=== PATIENT | female | born 1945 | race Caucasian/White ===

== ENCOUNTER 2017-01-16 19:25 | Emergency (ER) | payer MEDICARE, OTHER ==
[~2017-01-16] VITALS: Ht 160 cm; Wt 94.0 kg
[~2017-01-16 19:25] MED LIST: ASA LO-DOSE81 MG OR; ASPIRIN 81 LOW81 MG PO; CALCIUM600 M1 OR; CRESTOR20 MG PO; LOPRESSOR25 MG PO; METOPROL TAR25 MG PO; OS-CAL D 250250 MG PO; PERCOCET1 TA4 PO; TORADOL PO; TRAMADOL HCL50 MG PO; XARELTO10 MG PO; XARELTO15 MG PO; XARELTO20 MG PO; ZOCOR80 MG OR; ZOSTAVAX IM
[2017-01-16] MEDS ORDERED: ASPIRIN81 MG PO (19:42)
[2017-01-16] MEDS ORDERED: FISH OIL1000 MG PO (19:43)
[2017-01-16] MEDS ORDERED: C 250 PO (19:43)
[2017-01-16] MEDS ORDERED: [UNRECOGNIZED DRUG - OTHER] (19:44)
[2017-01-16] MEDS ORDERED: SLOW (19:44)
[2017-01-16 20:10] LABS: URINE BILIRUBIN - DIPSTICK NEGATIVE (NEGATIVE); URINE BLOOD DIPSTICK NEGATIVE (NEGATIVE); URINE CLARITY CLEAR; URINE COLOR YELLOW; URINE GLUCOSE - DIPSTICK NEGATIVE (NEGATIVE); URINE KETONE TRACE mg/dL (NEGATIVE); URINE LEUK ESTERASE NEGATIVE (NEGATIVE); URINE NITRITE - DIPSTICK NEGATIVE (Negative); URINE PH 5.5 (4.5-8.0); URINE PROTEIN - DIPSTICK NEGATIVE (NEG-TRACE); URINE SPECIFIC GRAVITY >=1.030; URINE UROBILINOGEN - DIPSTICK 0.2 E.U./dL (0.2)
[2017-01-16 20:13] LABS: HEMATOCRIT 43.7 % (37.0-47.0); HEMOGLOBIN 14.1 g/dl (12.0-16.0); IMMATURE GRANULOCYTES 0.4 % (0.0-1.0); MEAN CELL VOLUME 89.5 fL CALC (80.0-100.0); MEAN CORPUSCULAR HGB 28.9 pG CALC (26.0-32.0); MEAN CORPUSCULAR HGB CONC 32.3 g/L CALC (32.0-36.0); NEUT# 7.29 thou/uL (2.00-7.15); RED BLOOD COUNT 4.88 mill/uL (4.20-5.60); RED CELL DISTRI WIDTH 12.5 % (11.5-15.5)
[2017-01-16 20:32] LABS: ALBUMIN 4.6 g/dL (3.2-5.0); ALKALINE PHOSPHATASE 76 u/l (38-126); AMYLASE 66 u/l (30-110); ANION GAP 17 (6-22 (CALC)); BILIRUBIN, TOTAL 0.7 mg/dL (0.0-1.4); BUN 18 mg/dL (8-23); BUN/CREATININE RATIO 27 (12-20 (CALC)); CALCIUM 9.6 mg/dL (8.4-10.2); CARBON DIOXIDE 27 mmol/l (22-30); CHLORIDE 101 mmol/l (95-108); CREATININE 0.7 mg/dL (0.5-1.0); GFR > 60 ML/MIN (>=60 (CALC)); GFR FOR AFR.AMER. > 60 ML/MIN (>=60 (CALC)); GLUCOSE 119 mg/dL (82-115); LIPASE 140 u/l (23-300); POTASSIUM 3.6 mmol/l (3.5-5.1); SGOT/AST 30 u/l (9-36); SGPT/ALT 43 u/l (11-66); SODIUM 142 mmol/l (137-146); TOTAL PROTEIN 8.1 g/dL (6.3-8.2)
[2017-01-16 20:40] LABS: MYOGLOBIN 28 ng/mL (0 - 62)
[2017-01-16] MEDS ORDERED: ZOFRAN4 MG/TAB PO (23:03)
[2017-01-16 23:20] VITALS: BP 126/57
[2017-01-17 00:02] LABS: C. DIFFICILE TOXIN A&B NEGATIVE (NEGATIVE)
== END 2017-01-16 23:20 | disposition home or self-care (01) ==
LOC: ED 19:25
PROVIDERS: Emergency Medicine
DX: K52.9 Noninfective gastroenteritis and colitis, unspecified (principal); R94.31 Abnormal electrocardiogram [ECG] [EKG]; R50.9 Fever, unspecified; R11.2 Nausea with vomiting, unspecified

== ENCOUNTER → 2017-08-01 | Day surgery (SDC) | payer MEDICARE, OTHER ==
[~2017-08-01] VITALS: Ht 160 cm; Wt 90.7 kg
[~2017-08-01] MED LIST changes: +ASPIRIN81 MG PO; +C 250 PO; +FISH OIL1000 MG PO; +LEVOTHYROXIN50 MCG PO; +METOPROLOL SUCC25 MG PO; +VITAMIN PO; +ZOFRAN4 MG/TAB PO
[2017-08-01 08:54] VITALS: BP 106/71
== END | disposition home or self-care (01) ==
LOC: ENDO 06:41
PROVIDERS: ATTEND Surgery
PROC: 0DJD8ZZ Inspection of Lower Intestinal Tract, Via Natural or Artificial Opening Endoscopic (ICD-10-PCS; principal; 2017-08-01)
DX: Z12.11 Encounter for screening for malignant neoplasm of colon (principal); K64.8 Other hemorrhoids; I10 Essential (primary) hypertension; E78.5 Hyperlipidemia, unspecified; E03.9 Hypothyroidism, unspecified; Z86.711 Personal history of pulmonary embolism; Z86.010 Personal history of colon polyps

== ENCOUNTER 2018-06-26 11:26 | Inpatient (IN) | payer MEDICARE, OTHER ==
[~2018-06-26] VITALS: Ht 160 cm; Wt 95.8 kg
[2018-06-26] MEDS ORDERED: BIOTIN5000 MC2 PO (14:41)
[2018-07-01] VITALS (8 sets, daily range): BP systolic 100–127; BP diastolic 37–80
--- NOTE | 2018-07-01 14:05 | NUR ---
PT ARRIVED FROM OR VIA BED, FAMILY CAME SHORTLY AFTERWARD. IV SITE IS FREE FROM REDNESS OR EDEMA. HR IS REG, PULSES ARE STRONG X4, ABD IS SOFT WITH ACTIVE BS, DRESSING ON R KNEE IS CDI. CONTINUE TO OSBERVE AND MONITOR
--- NOTE | 2018-07-01 18:02 | NUR ---
PT HAS BEEN VISITING WITH FAMILY. NO DISTRESS MOTED.IV SITE IS FREE FROM REDNESS OR EDEMA.
--- NOTE | 2018-07-01 19:00 | NUR ---
RECEIVED CHANGE OF SHIFT REOPORT FROM PETEY ARZOLA. PT ALERT AND ORIENTED AND LYING IN BED. DENIES PAIN OR DISCOMFORT AT THIS TIME. ADVISED PT TO CALL WHEN STARTING TO HURT. PT VERBALIZED UNDERSTANDING. NO APPARENT ACUTE DISTRESS NOTED. WILL CONTINUE TO MONITOR.
[2018-07-02] VITALS (7 sets, daily range): BP systolic 108–138; BP diastolic 60–78
--- NOTE | 2018-07-02 | NUR ---
PT AWAKE AND LYING IN BED. REPORTS PAIN TO RT HIP. REPOSITIONED PT TO L SIDE.
--- NOTE | 2018-07-02 05:00 | NUR ---
PT SLEPT INTERMITENTLY DURING THE NIGHT. NO VOICED COMPLAINTS. NO APPARENT ACUTE CHANGES NOTED IN PT'S CONDITION.
[2018-07-02 05:09] LABS: IMMATURE GRANULOCYTES 0.2 % (0.0-5.0); MEAN CELL VOLUME 91.6 fL CALC (80.0-100.0); MEAN CORPUSCULAR HGB 29.5 pG CALC (26.0-32.0); MEAN CORPUSCULAR HGB CONC 32.2 g/L CALC (32.0-36.0); NEUT# 3.75 thou/uL (2.00-7.15); RED BLOOD COUNT 3.59 mill/uL (4.20-5.60); RED CELL DISTRI WIDTH 13.2 % (11.5-15.5)
[2018-07-02 05:12] LABS: HEMATOCRIT 32.9 % (37.0-47.0); HEMOGLOBIN 10.6 g/dl (12.0-16.0)
[2018-07-02 05:23] LABS: ALBUMIN 3.4 g/dL (3.2-5.0); ALKALINE PHOSPHATASE 56 u/l (38-126); ANION GAP 15 (6-22 (CALC)); BILIRUBIN, TOTAL 0.5 mg/dL (0.0-1.4); BUN 10 mg/dL (8-23); BUN/CREATININE RATIO 19 (12-20 (CALC)); CARBON DIOXIDE 26 mmol/l (22-30); CHLORIDE 103 mmol/l (95-108); CREATININE 0.5 mg/dL (0.5-1.0); GFR > 60 ML/MIN (>=60 (CALC)); GFR FOR AFR.AMER. > 60 ML/MIN (>=60 (CALC)); MAGNESIUM 1.6 mg/dL (1.6-2.3); POTASSIUM 4.2 mmol/l (3.5-5.1); SGOT/AST 24 u/l (9-36); SGPT/ALT 33 u/l (11-66); SODIUM 140 mmol/l (137-146); TOTAL PROTEIN 5.8 g/dL (6.3-8.2)
--- NOTE | 2018-07-02 08:40 | NUR ---
ASSESSMENT IS COMPLETED: IV SITE IS FREE FROM REDNESS OR EDEMA. HR IS REG, PULSES ARE STRONG X4, ABD IS SOFT WITH ACTIVE BS. BREATH SOUNDS ARE CLEAR, BILATERALLY. NO C/O SOB, DRESSING ON R KNEE IS CDI. CONTINUE TO OSBERVE AND MONITOR.
--- NOTE | 2018-07-02 12:00 | NUR ---
AM: PATIENT SEEN FOR GAIT TRAINING AND EX. STATES SHE WAS NAUSEAUS ALL NIGHT AND DIDN'T EAT BREAKFAST. STATES SHE CANNOT MOVE THE LEFT LEG. ISOMETRIC EX FOR QUADS AND GLUTS, ANKLE PUMPS AND HIP ROTATIONS DONE. AA KNEE FLEX AND EXT DONE IN SITTING. MOD ASSIST NEEDED FOR TRANSFERS TO ASSIST WITH MOVING THE LEFT LE. SHE IS TRYING FOR NWB DURING GAIT WITH THE WALKER. SHE IS ABLE TO WALK APPROX 6 STEPS AND THEN BECAME NAUSEOUS AND SOB. THIS PASSED AFTER SHE SAT DOWN. SHE WAS LEFT COMFORTABLE IN THE CHAIR WITH THE TRAY TABLE NEXT TO HER, AND THE CALL LIGHT ON HER LAP. SHE STATED SHE FELT BETTER AFTER SITTING.
--- NOTE | 2018-07-02 12:40 | NUR ---
PT IS RELAXING IN THE CHAIR. NO DISTRESS NOTED. IV SITE IS FREE FROM REDNESS OR EDEMA.
--- NOTE | 2018-07-02 14:51 | NUR ---
PM: PATIENT SEEN FOR GAIT TRAINING AND THERAPEUTIC EXERCISE. SHE HAS BEEN UP IN THE CHAIR FOR 3 HOURS WITHOUT COMPLAINT. PATIENT IS VERY GROGGY-SLURRING HER WORDS AND FALLING ASLEEP IN DURING THE THERAPY SESSION. PATIENT WAS ABLE TO TRANSFER SIT TO AND FROM STAND WITH MOD ASSIST. TRANSFERS STAND TO SIT ARE UNSAFE SHE LETS HERSELF FALL BACK INTO THE CHAIR OR ONTO THE BED WITH NO REGARD TO SAFETY DESPITE CONTINUAL VERBAL AND PHYSICAL CUING. SHE WAS ABLE TO AMBULATE 10 FEET WITH THE ROLLING WALKER AND MODERATE ASSIST OF ONE. THERAPEUTIC EX DONE FOR ROM AND STRENGTHENING OF THE LEFT LEG. PATIENT DIFFICULT TO MOTIVATE BECAUSE OF FATIGUE. SHE WAS LEFT COMFORTABLE IN THE BED WITH THE CALL LIGHT AND TRAY TABLE BY HER SIDE.
--- NOTE | 2018-07-02 16:00 | NUR ---
PT IS RELAXING IN THE BED , WAS IN THE CHAIR. IV SITE IS FREE FROM REDNESS OR EDEMA.
--- NOTE | 2018-07-02 19:00 | NUR ---
RECEIVED CHANGE OF SHIFT REPORT FROM PETEY AROZLA. PT ALERRT AND ORIENTED X 3 AND LYING IN BED. DENIES PAIN. PT STATED " I ONLY HURT WHEN I GET UP TO USE THE BSC. jUST LYING HERE IT DOES NOT HURT." RLE WARM TO THE TOUCH. PT ABLE TO WIGGLE TOES. NO APPARENT ACUTE DISTRESS NOTED. WILL CONTINUE TO MONITOR.
--- NOTE | 2018-07-03 | NUR ---
PT AWAKE AND LYING IN BED. NO VOICED COMPLAINTS. NO APPARENT ACUTE DISTRESS NOTED. WILL CONTINUE TO MONITOR.
--- NOTE | 2018-07-03 05:00 | NUR ---
PT SLEPT WELL DURING THE NIGHT. DENIES PAIN EXCEPT WHEN SHE IS MOVED. NO APPARENT ACUTE DISTRESS NOTED. SCANT WOUND DRAINAGE NOTED TO RLE. PT STATES SHE BUMP AND CUT HER LEG OF A DOG CAGE. BAND AID OVER WOUND.
[2018-07-03 05:05] VITALS: BP 114/68
[2018-07-03 05:08] LABS: HEMATOCRIT 29.2 % (37.0-47.0); HEMOGLOBIN 9.5 g/dl (12.0-16.0); IMMATURE GRANULOCYTES 0.5 % (0.0-5.0); MEAN CORPUSCULAR HGB 29.6 pG CALC (26.0-32.0); MEAN CORPUSCULAR HGB CONC 32.5 g/L CALC (32.0-36.0); NEUT# 3.99 thou/uL (2.00-7.15); RED BLOOD COUNT 3.21 mill/uL (4.20-5.60); RED CELL DISTRI WIDTH 13.1 % (11.5-15.5)
--- NOTE | 2018-07-03 08:00 | NUR ---
PT UP TO CHAIR WITH ASSISTANCE BY UTILITIES OPERATOR. PT ASKED TO USE BEDSIDE COMMODE. PT ASSISTED WITH WALKER TO COMMODE THEN TO CHAIR TO SIT UP FOR BREAKFAST. NO COMPLAINTS AT THIS TIME. CALL LYNDSEY IN REACH.
[2018-07-03 08:30] VITALS: BP 118/50
--- NOTE | 2018-07-03 08:30 | NUR ---
PT IS SITTING UP IN THE CHAIR. NO DISTRESS NOTED. IV SITE IS FREE FROM REDNESS OR EDEMA. PT C/O LEG BURNING AND PAIN. R KNEE DRESSING IS CDI. WHERE SHE SCRAPED THE MORNING OF SURGERY. IS DRAINING SERO DRAINAGE. HR IS REG,PULSES ARE STRONG X4, ABD IS SOFT WITH ACTIVE BS. BREATH SOUNDS ARE CLEAR, CONTINUE TO OSBERVE AND MONITOR.
--- NOTE | 2018-07-03 10:41 | NUR ---
REMOVED PT'S DRESSING ON R KNEE AND R LOWER LEG, LOWER LEG HAS SOME SERO AND BLOODY DRAINAGE FROM SCRAPING ON A DOG CRATE THE DAY OF SURGERY. NO DRAINAGE ON SURGERY SITE. USING CLEAN TECHNIQUE. PT TOLERATED WELL.
[2018-07-03 11:00] VITALS: BP 125/69
--- NOTE | 2018-07-03 12:20 | NUR ---
PT IS RELAXING IN BED WITH FAMILY IN THE ROOM. IV SITE IS FREE FROM REDNESS OR EDEMA. CONTINUE TO OSBERVE AND MONITOR.
[2018-07-03 16:00] VITALS: BP 121/62
--- NOTE | 2018-07-03 16:04 | NUR ---
Pt seen this pm for treatment. She was in bed, c/o R knee pain. Ther ex performed in supine and sitting. Quad set/contraction was poor and required assist with SAQ and LAQ. Pt moved supine to and from sit with min assist of RRLE. She ambulated 2 x 30' in room with RW with CGA and verbal cues for gait pattern. Pt returned to bed and was positioned corrected with call desouza in reach and 2 visitors present. Nursing notified so they con finish a procedure.
--- NOTE | 2018-07-03 16:20 | NUR ---
PT HAS BEEN RESTING IN BED , DID GET UP WITH PHYSICAL THERAPY. IV SITE IS FREE FROM REDNESS OR EDMEA. CONTINUE TO OBSERVE AND MONITOR.
[2018-07-03 19:00] VITALS: BP 128/66
--- NOTE | 2018-07-03 20:15 | NUR ---
PT ASSISTED TO BSC AND BACK TO BED. DENIES ANY OTHER NEEDS AT THIS TIME. CALL LIGHT AT BEDSIDE AND PT ENCOURAGED TO CALL NEEDED. SCD REPLACED ON LEFT LOWER LEG AND RIGHT LEG POSITIONED FOR PROPER CARE. DRESSING IS CDI AT THIS TIME.
--- NOTE | 2018-07-03 22:21 | NUR ---
PT MEDICATED ORDERS PROVIDE AND WITH TYELENOL FOR TEMP OF 101.6. PT DENIES PAIN MEDICATED/DENIES PAIN, REPORTING THAT SHE ONLY HAS PAIN WHEN MOVING, BUT THAT SHE WAS SLEEPING WELL WHEN I ENTERED THE ROOM AND WOKE HER UP. SURGICAL INCISION IS CDI, MINIMAL REDNESS TO AREA. DRESSING TO LOWER RIGHT LEG IS CDI.PT ASSESSED AT THIS TIME, LUNG SOUNDS ARE CLEAR, ABD SOFT/NON-TENDER WITH ACTIVE BOWEL SOUNDS, DISCUSSED WITH PT ABOUT PILLOW PLACEMENT AND KEEPING KNEE STRAIGHT WHILE IN BED. PT ASSISTED IN POSITIONING SO THAT PILLOW IS NOT UNDER THE KNEE. IS WAS UP IN CUBBY NEXT TO BED OUT OF THE PT REACH, MOVED TO [facility] AND PT REORIENTED IN ITS USE/PT VOICED UNDERSTANDING. PT DENIES ANY OTHER NEEDS AT THIS TIME.
--- NOTE | 2018-07-04 01:45 | NUR ---
AIDE REPORTED THAT PT AMBULATED W/ASSISTANCE TO BSC AND BACK TO BED. SHE REPORTED THAT BEDDING HAD TO BE CHANGED DUE TO A 4X4" AREA OF DRAINAGE FROM RIGHT LOWER LEG WOUND. DRESSING HAD COME LOOSE AND WAS NOT COVERING WOUND. I REDRESSED THE AREA WITH KURLEX AND WILL CONTINUE TO MONITOR. PT TEMP REASSESSED TO BE 98.5 A THIS TIME.
[2018-07-04 04:00] VITALS: BP 119/67
--- NOTE | 2018-07-04 04:25 | NUR ---
PT IS SLEEPING, BUT AWOKE TO MY ENTERING ROOM. REQUESTED SCD REMOVED DUE TO BEEPING, WHICH HAD BEEN WORKED ON EARLIER IN THE EVENING. SCD REMOVED PER REQUEST. DENIES ANY OTHER NEEDS AT THIS TIME. CALL LIGHT AT BEDSIDE.
[2018-07-04 05:26] LABS: HEMATOCRIT 28.6 % (37.0-47.0); HEMOGLOBIN 9.3 g/dl (12.0-16.0); IMMATURE GRANULOCYTES 0.5 % (0.0-5.0); MEAN CELL VOLUME 91.7 fL CALC (80.0-100.0); MEAN CORPUSCULAR HGB 29.8 pG CALC (26.0-32.0); MEAN CORPUSCULAR HGB CONC 32.5 g/L CALC (32.0-36.0); NEUT# 4.2 thou/uL (2.00-7.15); RED BLOOD COUNT 3.12 mill/uL (4.20-5.60); RED CELL DISTRI WIDTH 13.1 % (11.5-15.5)
[2018-07-04 05:52] LABS: ALKALINE PHOSPHATASE 69 u/l (38-126); ANION GAP 13 (6-22 (CALC)); BILIRUBIN, TOTAL 0.7 mg/dL (0.0-1.4); BUN 9 mg/dL (8-23); BUN/CREATININE RATIO 16 (12-20 (CALC)); CARBON DIOXIDE 31 mmol/l (22-30); CHLORIDE 102 mmol/l (95-108); CREATININE 0.6 mg/dL (0.5-1.0); GFR > 60 ML/MIN (>=60 (CALC)); GFR FOR AFR.AMER. > 60 ML/MIN (>=60 (CALC)); POTASSIUM 3.8 mmol/l (3.5-5.1); SGOT/AST 17 u/l (9-36); SGPT/ALT 23 u/l (11-66); SODIUM 142 mmol/l (137-146); TOTAL PROTEIN 5.4 g/dL (6.3-8.2)
[2018-07-04 05:54] LABS: MAGNESIUM 2.2 mg/dL (1.6-2.3)
--- NOTE | 2018-07-04 06:11 | NUR ---
PT MEDICATED ORDERS PROVIDE AND DRESSING TO LOWER RIGHT LEG REINFORCED FOR SMALL AMOUNT OF YELLOW DRAINAGE. WILL CONTINUE TO MONITOR.
[2018-07-04 09:36] VITALS: BP 126/50
[2018-07-04 11:55] VITALS: BP 102/58
--- NOTE | 2018-07-04 12:39 | NUR ---
AM. PT WAS SEEN FOR GT. MIN A ON SLIDING LEG OFF THE BED. PT REPORTS HAVING A GREAT DIFFICULTY LIFTING HER OPERATED LEG. EDUCATED PT ON THE IMPORTANCE OF REGULARLY DOING HER EXERCISES. PT STOOD UP FROM SITTING ON EOB WITH VC AND SBA. SHE STARTED AMB W/ RW AND SBA IN THE HALLWAY ~60 FT. X 2 STATING THAT IT WAS THE FARTHEST SHE'S WALKED AFTER SURGERY. PT WAS INSTRUCTED ON PROPER GAIT SHE PRESENTED WITH ANTALGIC GAIT. SHE THEN RETURNED TO HER ROOM AND SAT DOWN ON EOB. MIN A ON LIFTING LEG BACK TO BED WHERE PT REPOSITIONED HERSELF. LEFT PT W/ CALL SOLORIO BESIDE HER. NO ADVERSE EVENTS NOTED OR REPORTED.
--- NOTE | 2018-07-04 15:00 | NUR ---
The patient is seen BID for treatment today. The PM treatment included ROM stretching and review of quad set. PROM 5-80 limited by postop pain. She is battling some cellulitis of the RLE but otherwise is prgoressing well, ambulating nearly 2000 feet but on a level surface only and with min assist of 1. She needs assistance for fall prevention and progression of her gait to a steep through pattern on multiple surfaces
[2018-07-04 15:21] VITALS: BP 107/61
[2018-07-04 19:20] VITALS: BP 108/54
--- NOTE | 2018-07-04 19:25 | NUR ---
REPORT RECEIVED FROM DAY NURSE. PT IS SLEEPING AT THIS TIME. NO S/S OF DISTRESS AT THIS TIME. CALL LIGHT IS AT SIDE.
--- NOTE | 2018-07-04 20:12 | NUR ---
NEW IV SITE ACCESSED, PT TOLERATED WELL. DENIES ANY OTHER NEEDS AT THIS TIME. TV AND LIGHTS ON LOW, CALL LIGHT AT SIDE.
--- NOTE | 2018-07-04 22:15 | NUR ---
PT MEDICATED ORDERS PROVIDE, IV ANTIBIOTIC THERAPY BEING ADMINSTERED AT THIS TIME. PT ASSESSED, LUNG SOUNDS ARE CLEAR, ABD SOFT NON-TENDER W/ACTIVE BOWEL SOUNDS, DENIES BM TODAY, LOCX3, INCISION TO RIGHT KNEE HAS DERMABOND MINIMAL REDNESS, WARMTH AND EDEMA TO RIGHT LEG. STRONG PEDAL PULSES BILATERALLY. ICE PACK PLACED TO INCISION AREA AND PT REMINDED OF USE OF IS/REPORTS USING. PT DENIES ANY OTHER NEEDS AT THIS TIME. CALL LIGHT W/IN REACH.
[2018-07-05 00:06] VITALS: BP 120/64
[2018-07-05 04:09] LABS: URINE BILIRUBIN - DIPSTICK NEGATIVE (NEGATIVE); URINE BLOOD DIPSTICK NEGATIVE (NEGATIVE); URINE CLARITY SL CLOUDY; URINE COLOR YELLOW; URINE GLUCOSE - DIPSTICK NEGATIVE (NEGATIVE); URINE KETONE NEGATIVE (NEGATIVE); URINE LEUK ESTERASE NEGATIVE (NEGATIVE); URINE NITRITE - DIPSTICK NEGATIVE (Negative); URINE PH 6.5 (4.5-8.0); URINE PROTEIN - DIPSTICK NEGATIVE (NEG-TRACE); URINE UROBILINOGEN - DIPSTICK 0.2 E.U./dL (0.2)
[2018-07-05 04:14] VITALS: BP 123/71
--- NOTE | 2018-07-05 05:56 | NUR ---
PT MEDICATED W/ANTIBIOTIC IV THERAPY AND MEDICATIONS ORDERED. PT IS A LITTLE TEARY STATING SHE "THOUGHT I WOULD BE GETTING OUT OF HERE BY NOW." I REASSURED PT AND DISCUSSED POC AND PROVIDED COMFORT REASSURANCE TO HER. PT IS GOING TO ATTEMPT TO GO BACK TO SLEEP. LIGHTS AND TV ARE OFF. SHE DENIES ANY PAIN OR NEED FOR PAIN MEDICATIONS. WILL CONITINUE TO MONITOR.
--- NOTE | 2018-07-05 07:00 | NUR ---
SHIFT CHANGE REPORT FROM TRISH LEONARDO SLEEPING AT THIS TIME, BREATHING EVEN AND NON-LABORED, NO SIGN DISCOMFORT, CALL SOLORIO IN REACH.
--- NOTE | 2018-07-05 08:00 | NUR ---
AWAKE ALERT AND ORIENTED HAVING MEAL, NO C/O DISCOMFORT, ASSISTED TO BR AND BACK TO RECLINER, SITTING UP AT THIS TIME.
[2018-07-05 08:21] VITALS: BP 129/76
[2018-07-05 11:11] VITALS: BP 108/60
--- NOTE | 2018-07-05 11:14 | NUR ---
The patient is seen for therapeutic exercises this morning including heel slides and SAQ. She has these for HEP and demonstrates them without difficulty. AROM 0-65- limited by postop pain and edema today. PROM to 80 degrees. She is able to ambulate WBAT on a levl surface only for 220 feet. She required mod assist to do so due to postop weakness. She is improving nicely and will be a great rehab candidate
--- NOTE | 2018-07-05 12:57 | NUR ---
DR JEAN ONTIVEROS, DISCUSSED D/C INSTRUCTIONS, PT STATED SHE IS ALREADY SET-UP FOR REHAB IN [facility], ALL NEEDS ADDRESS, WILL CONTINUE TO MONITOR.
[2018-07-05 15:53] VITALS: BP 125/66
--- NOTE | 2018-07-05 17:01 | NUR ---
The patient is seen in the PM. She demonstrated independence with her HEP. ROM is 0-80 and she has a good quad set. She ambulated 220 feet with mod assist of 1 and has been transferring bed to chair independently. She is ready for DC to next level of care.
--- NOTE | 2018-07-05 19:20 | NUR ---
BEDSIDE REPORT RECEIVED FROM DAY NURSE. WHILE WE WERE IN THE ROOM PT REQUESTED TO AMBULATE TO RESTROOM. PT WAS ASSISTED TO RESTROOM AND BACK TO BED/TOLERATED WELL. ASSISTED REPOSITIONING FOR COMFORT AND ENCOURAGED TO CALL NEEDS ARISE. DENIES ANY NEEDS AT THIS TIME.
--- NOTE | 2018-07-05 19:40 | NUR ---
REPORT RECEIVED FROM DAY NURSE. PT IS IN BED W/LIGHTS LOW AND TV OFF. HIS HEAD WAS COVERED WITH SHEET WE ENTERED ROOM, BUT HE AWOKE AND REMOVED IT TO OUR ENTRANCE. PT REPORTS FEELING NAUSIOUS AND "JUMPY LEGS" AND REQUESTED MEDICATIONS AT THIS TIME/MEDICATED FOR NAUSEA, ANXIETY AND RESTLESS LEG SYNDROME. PT ASSESSED AND POC DISCUSSED. WILL CONTINUE TO MONITOR AND PT ENCOURAGED TO CALL IF ANY NEEDS ARISE. HE DENIES ANY NEEDS AT THIS TIME. CALL LIGHT IS IN HAND.
[2018-07-05 20:00] VITALS: BP 127/71
--- NOTE | 2018-07-05 22:07 | NUR ---
PT ASSISTED TO RESTROOM AND BACK TO BED, REPOSITIONED/ICE PACK PLACED TO KNEE, ASSISTED PT IN REPLACING PILLOWS TO BED. TEMP ASSESSED 100.5/MEDICATED WITH TYLENOL AND OTHER MEDICATIONS ORDERS PROVIDE. LUNG SOUNDS ARE CLEAR, MILD EDEMA TO RIGHT LEG, INCISION TO KNEE APPEARS MILDLY REDDENED AT CENTER/OTHERWISE HEALTHY AND INTACT. DRESSING TO SKIN TEAR TO RIGHT LOWER LEG IS CDI, PT TOLERATED AMBULATING WELL, DENIES NEED FOR PAIN MEDICATION AT THIS TIME. PT ENCOURAGED TO CALL IF ANY OTHER NEEDS ARISE. CALL LIGHT AT BEDSIDE.
--- NOTE | 2018-07-05 22:55 | NUR ---
PT CALLED TO REPORT NEEDING ASSISTANCE IN REPOSITIONING LEG AND PAIN MEDICATION. PT MEDICATED AT THIS TIME AND REPOSITIONED FOR COMFORT AND CORRECT POSITIONING OF KNEE.
--- NOTE | 2018-07-06 03:05 | NUR ---
PT APPEARS TO BE SLEEPING AT THIS TIME, NO S/S OF DISTRESS NOTED. CALL LIGHT AT BEDSIDE.
[2018-07-06 05:13] VITALS: BP 111/72
[2018-07-06 05:47] LABS: HEMATOCRIT 25.7 % (37.0-47.0); HEMOGLOBIN 8.1 g/dl (12.0-16.0); IMMATURE GRANULOCYTES 0.7 % (0.0-5.0); MEAN CELL VOLUME 93.5 fL CALC (80.0-100.0); MEAN CORPUSCULAR HGB 29.5 pG CALC (26.0-32.0); MEAN CORPUSCULAR HGB CONC 31.5 g/L CALC (32.0-36.0); NEUT# 2.56 thou/uL (2.00-7.15); RED BLOOD COUNT 2.75 mill/uL (4.20-5.60); RED CELL DISTRI WIDTH 13.4 % (11.5-15.5)
--- NOTE | 2018-07-06 07:06 | NUR ---
BEDSIDE REPORT RECEIVED BY ROWENA. PT IS RESTING IN BED WITH NO S/S OF DISTRESS NOTED. PT DENIES NEEDS AT THIS TIME. CALL LIGHT IN REACH.
[2018-07-06 08:25] VITALS: BP 112/62
--- NOTE | 2018-07-06 08:35 | NUR ---
PT IS SITTING IN RECLINER WITH LEGS ELEVATED. ASSESSMENT DONE. RESPS EVEN AND UNLABORED. PT IS A&O X3. INCENTIVE SPIROMETRY ENCOURAGE AND PT VERBALIZED UNDERSTANDING. PT DENIES PAIN AT THIS TIME. #22 LFA THAT APPEARS HEALTHY. RLE LEG DRESSING IS CDI. RIGHT KNEE LEG [employer] AND WARM TO THE TOUCH. SAFETY PRECAUTIONS REINFORCED AND CALL LIGHT IN REACH.
[2018-07-06] MEDS ORDERED: XARELTO10 MG PO (09:42)
[2018-07-06] MEDS ORDERED: PANTOPRAZOLE SO40 M1 PO (09:42)
[2018-07-06] MEDS ORDERED: GLYCOLAX3350 N1 PO (09:42)
[2018-07-06] MEDS ORDERED: LORTAB 1010 MG PO (09:42)
[2018-07-06] MEDS ORDERED: FERR SULFATE325 MG PO (09:43)
[2018-07-06] MEDS ORDERED: AUGMENTIN875TAB PO (09:45)
[2018-07-06] MEDS ORDERED: DOXYCYCL HYC100 MG PO (09:45)
--- NOTE | 2018-07-06 11:00 | NUR ---
PT RESTING IN BED . DRESSING CHANGE TO RLE . PT TOLERATED DRESSING CHANGE WELL. PT DENIES ANY OTHER NEEDS AT THIS TIME. CALL LIGHT IN REACH.
--- NOTE | 2018-07-06 14:56 | NUR ---
Discharge instructions given. Patient verbalizes understanding of same. Discharged in stable condition via Wheelchair to *Other with staff. All belongings sent with pt.
--- NOTE | 2018-07-06 15:36 | NUR ---
REPORT GIVEN TO MINISTERIO IN REHAB.
== END 2018-07-06 14:56 | DRG 470 ==
LOC: MS2 07-01 05:48
PROVIDERS: Nurse Practitioner Family; ADMIT Orthopaedic Surgery; ATTEND Internal Medicine Nephrology
PROC: 0SRC0J9 Replacement of Right Knee Joint with Synthetic Substitute, Cemented, Open Approach (ICD-10-PCS; principal; 2018-07-01)
DX: M17.11 Unilateral primary osteoarthritis, right knee (principal); L03.115 Cellulitis of right lower limb; M23.8X1 Other internal derangements of right knee; I10 Essential (primary) hypertension; E03.9 Hypothyroidism, unspecified; E78.5 Hyperlipidemia, unspecified; I47.9 Paroxysmal tachycardia, unspecified; D64.9 Anemia, unspecified; S80.811A Abrasion, right lower leg, initial encounter; G25.81 Restless legs syndrome; E66.9 Obesity, unspecified; W22.8XXA Striking against or struck by other objects, initial encounter; Z68.37 Body mass index [BMI] 37.0-37.9, adult; Z96.652 Presence of left artificial knee joint; Z87.891 Personal history of nicotine dependence; Z79.82 Long term (current) use of aspirin; Z86.711 Personal history of pulmonary embolism
CPT/HCPCS: C1713; J1650

== ENCOUNTER 2018-09-17 14:36 | Emergency (ER) | payer MEDICARE, OTHER ==
[~2018-09-17] VITALS: Ht 160 cm; Wt 89.5 kg
[~2018-09-17 14:36] MED LIST changes: +AUGMENTIN875TAB PO; +BIOTIN5000 MC2 PO; +DOXYCYCL HYC100 MG PO; +FERR SULFATE325 MG PO; +GLYCOLAX3350 N1 PO; +LORTAB 1010 MG PO; +PANTOPRAZOLE SO40 M1 PO
[2018-09-17 16:15] VITALS: BP 155/74
== END 2018-09-17 16:15 | disposition home or self-care (01) ==
LOC: ED 14:36
DX: S80.02XA Contusion of left knee, initial encounter (principal); S80.01XA Contusion of right knee, initial encounter; M25.551 Pain in right hip; E78.00 Pure hypercholesterolemia, unspecified; W18.39XA Other fall on same level, initial encounter; Z86.711 Personal history of pulmonary embolism; Z96.653 Presence of artificial knee joint, bilateral

== ENCOUNTER → 2018-11-26 | Outpatient (REF) | payer MEDICARE, OTHER ==
[2018-11-26 11:30] LABS: HEMATOCRIT 45.5 % (37.0-47.0); HEMOGLOBIN 14.9 g/dl (12.0-16.0); IMMATURE GRANULOCYTES 0.3 % (0.0-5.0); MEAN CELL VOLUME 89.7 fL CALC (80.0-100.0); MEAN CORPUSCULAR HGB 29.4 pG CALC (26.0-32.0); MEAN CORPUSCULAR HGB CONC 32.7 g/L CALC (32.0-36.0); NEUT# 5.25 thou/uL (2.00-7.15); RED BLOOD COUNT 5.07 mill/uL (4.20-5.60); RED CELL DISTRI WIDTH 13.9 % (11.5-15.5)
[2018-11-26 12:05] LABS: ALBUMIN 4.5 g/dL (3.2-5.0); ALKALINE PHOSPHATASE 70 u/l (38-126); ANION GAP 16 (6-22 (CALC)); BILIRUBIN, TOTAL 0.6 mg/dL (0.0-1.4); BUN 12 mg/dL (8-23); BUN/CREATININE RATIO 19 (12-20 (CALC)); CARBON DIOXIDE 26 mmol/l (22-30); CHLORIDE 102 mmol/l (95-108); CREATININE 0.6 mg/dL (0.5-1.0); GFR > 60 ML/MIN (>=60 (CALC)); GFR FOR AFR.AMER. > 60 ML/MIN (>=60 (CALC)); POTASSIUM 4.3 mmol/l (3.5-5.1); SGOT/AST 33 u/l (9-36); SODIUM 140 mmol/l (137-146); TOTAL PROTEIN 7.2 g/dL (6.3-8.2)
[2018-11-26 13:09] LABS: C. DIFFICILE TOXIN A&B NEGATIVE (NEGATIVE)
== END | disposition home or self-care (01) ==
LOC: LAB 10:57
PROVIDERS: ATTEND Nurse Practitioner
DX: R19.7 Diarrhea, unspecified (principal)

== ENCOUNTER 2020-01-03 | Emergency (ER) | payer MEDICARE, OTHER | END 2020-01-03 16:04 | disposition home or self-care (01) | DX: S01.542A Puncture wound with foreign body of oral cavity, initial encounter (principal); X58.XXXA Exposure to other specified factors, initial encounter ==

== ENCOUNTER 2022-04-12 19:30 | Emergency (ER) | payer MEDICARE, OTHER ==
[~2022-04-12] VITALS: Ht 160 cm; Wt 90.0 kg
[2022-04-12 20:44] LABS: HEMATOCRIT 42.4 % (37.0-47.0); HEMOGLOBIN 13.8 g/dl (12.0-16.0); MEAN CORPUSCULAR HGB 29.6 pG CALC (26.0-32.0); MEAN CORPUSCULAR HGB CONC 32.5 g/dL CAL (32.0-36.0); NEUT# 2.75 thou/uL (2.00-7.15); RED BLOOD COUNT 4.66 mill/uL (4.20-5.60); RED CELL DISTRI WIDTH 12.1 % (11.5-15.5)
[2022-04-12 21:24] LABS: ALBUMIN 4.1 g/dL (3.2-5.0); ALKALINE PHOSPHATASE 57 u/l (38-126); ANION GAP 10 (6-22 (CALC)); BILIRUBIN, TOTAL 0.7 mg/dL (0.0-1.4); BUN 11 mg/dL (8-23); BUN/CREATININE RATIO 15 (12-20 (CALC)); CARBON DIOXIDE 25 mmol/l (22-30); CHLORIDE 107 mmol/l (95-108); CREATININE 0.7 mg/dL (0.5-1.0); GFR FOR AFR.AMER. > 60 ML/MIN (>=60 (CALC)); GFR OTHER RACES > 60 ML/MIN (>=60 (CALC)); SGOT/AST 31 u/l (9-36); SODIUM 138 mmol/l (137-146); TOTAL PROTEIN 6.8 g/dL (6.3-8.2)
[2022-04-12 21:27] LABS: POTASSIUM 3.5 mmol/l (3.5-5.1)
[2022-04-12 21:36] LABS: MYOGLOBIN 32 ng/mL (0 - 62)
[2022-04-12 21:54] LABS: TSH, 3RD GENERATION 1.98 uIU/mL (0.47 - 4.68)
[2022-04-12 22:05] VITALS: BP 144/92
== END 2022-04-12 22:10 | disposition left against medical advice (07) ==
LOC: ED 19:30
PROVIDERS: Emergency Medicine
DX: R07.9 Chest pain, unspecified (principal); F41.9 Anxiety disorder, unspecified; E78.00 Pure hypercholesterolemia, unspecified; Z86.711 Personal history of pulmonary embolism; Z95.2 Presence of prosthetic heart valve; Z91.19 Patient's noncompliance with other medical treatment and regimen

== ENCOUNTER 2023-09-29 13:23 | Emergency (ER) | payer MEDICARE, OTHER ==
[~2023-09-29] VITALS: Ht 160 cm; Wt 72.0 kg
[2023-09-29 13:33] VITALS: BP 149/73
[2023-09-29 13:59] LABS: BASO% 0.4 % (0-3); EOS% 1.8 % (0-8); HEMATOCRIT 41.7 % (37.0-47.0); HEMOGLOBIN 13.7 g/dl (12.0-16.0); LYMPH% 7.8 % (15-41); MEAN CELL VOLUME 89.9 fL CALC (80.0-100.0); MEAN CORPUSCULAR HGB 29.5 pG CALC (26.0-32.0); MEAN CORPUSCULAR HGB CONC 32.9 g/dL CAL (32.0-36.0); MONO% 7.3 % (2-13); NEUT# 4.68 thou/uL (2.00-7.15); NEUT% 82.7 % (42-76); RED BLOOD COUNT 4.64 mill/uL (4.20-5.60); RED CELL DISTRI WIDTH 12.1 % (11.5-15.5)
[2023-09-29 14:11] LABS: ALBUMIN 4.2 g/dL (3.2-5.0); ALKALINE PHOSPHATASE 64 u/l (38-126); ANION GAP 15 (6-22 (CALC)); BILIRUBIN, TOTAL 0.6 mg/dL (0.02-1.3); BUN 9 mg/dL (8-23); BUN/CREATININE RATIO 15 (12-20 (CALC)); CHLORIDE 105 mmol/l (95-108); CREATININE 0.6 mg/dL (0.5-1.0); GFR FOR AFR.AMER. > 60 ML/MIN (>=60 (CALC)); GFR OTHER RACES > 60 ML/MIN (>=60 (CALC)); POTASSIUM 3.9 mmol/l (3.5-5.1); SGOT/AST 30 u/l (9-36); SODIUM 137 mmol/l (137-146); TOTAL PROTEIN 6.8 g/dL (6.3-8.2)
[2023-09-29 14:17] LABS: CARBON DIOXIDE 21 mmol/l (22-30)
[2023-09-29 14:43] VITALS: BP 130/76
[2023-09-29 15:00] VITALS: BP 128/62
[2023-09-29] MEDS ORDERED: PAXLOVID PO (15:19)
[2023-09-29 15:24] VITALS: BP 128/62
== END 2023-09-29 15:31 | disposition home or self-care (01) ==
LOC: ED 13:23
PROVIDERS: Nurse Practitioner Family
DX: U07.1 COVID-19 (principal); R50.9 Fever, unspecified; R53.83 Other fatigue; E03.9 Hypothyroidism, unspecified; F41.9 Anxiety disorder, unspecified; Z86.711 Personal history of pulmonary embolism; Z79.82 Long term (current) use of aspirin; Z95.2 Presence of prosthetic heart valve